=== PATIENT | male | born 1970 | race Two or more races ===

== ENCOUNTER 2019-05-23 11:40 | Emergency (ER) | payer OTHER ==
[~2019-05-23] VITALS: Ht 165.1 cm; Wt 70.3 kg
[~2019-05-23 11:40] MED LIST: AMOX1TAB12 PO; ELOCON45 G1 TP; KETO10TA2 PO; PERMETHRIN60 GM TP
== END 2019-05-23 13:31 | disposition home or self-care (01) ==
LOC: ER 11:40
DX: B34.9 Viral infection, unspecified (principal); B96.0 Mycoplasma pneumoniae [M. pneumoniae] as the cause of diseases classified elsewhere

== ENCOUNTER 2019-05-24 16:57 | Emergency (ER) | payer OTHER ==
[~2019-05-24] VITALS: Ht 160 cm; Wt 72.6 kg
== END 2019-05-24 20:43 | disposition home or self-care (01) ==
LOC: ER 16:57
DX: K52.89 Other specified noninfective gastroenteritis and colitis (principal); B34.9 Viral infection, unspecified